=== PATIENT | male | born 1990 | race Caucasian/White ===

== ENCOUNTER 2016-09-11 12:27 | Emergency (ER) | payer OTHER ==
[~2016-09-11] VITALS: Ht 180.3 cm; Wt 122.5 kg
[~2016-09-11 12:27] MED LIST: BENTYL 20 MG TA20 M1 PO; IBUPROFEN 600600 M1 PO; NOHOMEMEDICATIONS; NORFLEX100 MG PO; PREDNISONE 20 M20 MG PO
== END 2016-09-11 13:47 | disposition home or self-care (01) ==
LOC: ER 12:27
DX: S91.312A Laceration without foreign body, left foot, initial encounter (principal); W45.8XXA Other foreign body or object entering through skin, initial encounter; Y93.89 Activity, other specified; Y92.89 Other specified places as the place of occurrence of the external cause; Y99.9 Unspecified external cause status